=== PATIENT | female | born 1965 | race Caucasian/White ===

== ENCOUNTER 2016-12-21 23:43 | Inpatient (IN) | payer OTHER ==
[~2016-12-21] VITALS: Ht 162.6 cm; Wt 65.6 kg
[~2016-12-21 23:43] MED LIST: CHOL1CAP24 PO; IRON325T2 PO; LEVE500 PO
[2016-12-21 23:50] VITALS: PULSE 88; RESP 16; TEMP 98.9; O2SAT 99
[2016-12-22] MEDS ORDERED: TOPI1TAB36 PO (00:04)
[2016-12-22] MEDS: SODIUM CHLOR 0.9% 1000 ML INJ 1,000 ML IV SCH ×2 (00:15→08:15)
--- NOTE | 2016-12-22 00:33 | RADRPT ---
EXAM DATE/TIME: 12/22/2016 00:19 [place] COMPARISON: CHEST SINGLE AP, April 29, 2012, 18:46. INDICATIONS : pt having chest pain. MEDICAL HISTORY : seizures SURGICAL HISTORY : Pacemaker. Heart cath ENCOUNTER: Initial ACUITY: 1 day PAIN SCORE: 5/10 LOCATION: Bilateral chest FINDINGS: The lungs are clear without infiltrate, nodule, or mass. There is no appreciable pleural effusion fo r technique. Heart and mediastinum are unremarkable. Left subclavian transvenous pacer wires are pre sent with tips in the right atrium and right ventricle. CONCLUSION: No acute cardiopulmonary disease. Gabriella Mack MD on December 22, 2016 at 0:31 Board Certified Radiologist. This report was verified electronically.
[2016-12-22 00:37] LABS: AUTOMATED NEUTROPHIL # 5.5 TH/MM3 (1.8-7.7); BASOPHIL # 0.1 TH/MM3 (0-0.2); BASOPHIL % 1.3 % (0.0-2.0); EOSINOPHIL # 0.2 TH/MM3 (0-0.4); EOSINOPHIL % 1.9 % (0.0-4.0); HEMATOCRIT 41.4 % (35.0-46.0); HEMO FLAGS DIFF FINAL; LYMPH % 27.6 % (9.0-44.0); LYMPHOCYTE # 2.4 TH/MM3 (1.0-4.8); MEAN CELL VOLUME 94.3 FL (80.0-100.0); MEAN CORPUSCULAR HEMOGLOBIN 32.1 PG (27.0-34.0); MONO % 6.8 % (0.0-8.0); NEUT % 62.4 % (16.0-70.0); PLATELET COUNT 225 TH/MM3 (150-450); RED BLOOD COUNT 4.39 MIL/MM3 (4.00-5.30); RED CELL DISTRIBUTION WIDTH 12.6 % (11.6-17.2); WHITE BLOOD COUNT 8.8 TH/MM3 (4.0-11.0)
--- NOTE | 2016-12-22 00:39 | PD ---
HPI Chief Complaint: OD/ Ingestion Time Seen by Provider: 00:02 Travel History International Travel<30 days: No Contact w/Intl Traveler<30days: No Traveled to known affect area: No History of Present Illness HPI 51-year-old female was Ramon acted and brought in by EMS for alcohol intoxication and medication overdose. Patient's best friend Ricardo Batista, phone # [phone] called police today reported the patient is depressed and drinking alcohol. Patient is depressed over the of her son recently and the relationship. Patient told her friend that she swallowed 30 pills of Topamax 100 mg each in an attempt to commit suicide. Unknown time that patient swallowed the medication. Patient was Ramon acted and brought to ED for evaluation. Patient is intoxicated with slurred speech and unable to provide any information now. PFSH Past Medical History Anxiety: Yes (PANIC ATTACKS) Depression: Yes Cancer: No Cardiovascular Problems: Yes (PACEMAKER) Diabetes: No Diminished Hearing: No Endocrine: No Genitourinary: No Hepatitis: No Hiatal Hernia: No Immune Disorder: No Musculoskeletal: No Neurologic: Yes (HX SEIZURES) Psychiatric: No Reproductive: Yes (FIBROIDS) Respiratory: No Immunizations Current: Yes Seizures: Yes Thyroid Disease: No Tetanus Vaccination: < 5 Years Influenza Vaccination: Yes ?: Unknown : 5 Para: 5 Miscarriage: 0 : 0 Tubal Ligation: Yes Past Surgical History Body Medical Devices: BREAST IMPLANTS ; PACEMAKER Cardiac Surgery: Yes (HEART CATH- INSERTION PACEMAKER) Section: Yes (X1) Gynecologic Surgery: Yes () Pacemaker: No Thoracic Surgery: Yes (BREAST IMPLANTS) Tonsillectomy: Yes Other Surgery: Yes (BREAST IMPLANTS) Social History Alcohol Use: Yes Tobacco Use: No Substance Use: No Allergies-Medications (Allergen,Severity, Reaction): Coded Allergies: Latex (Verified Allergy, Severe, Hives, 12/22/16) Klonopin (Verified Allergy, Mild, 12/22/16) Reported Meds & Prescriptions Reported Meds & Active Scripts Active Reported Topiramate 50 Mg Tab 150 Mg PO BID Review of Systems General / Constitutional: No: Fever Eyes: No: Visual changes HENT: No: Headaches Cardiovascular: No: Chest Pain or Discomfort Respiratory: No: Shortness of Breath Gastrointestinal: No: Abdominal Pain Genitourinary: No: Dysuria Musculoskeletal: No: Pain Skin: No Rash Neurologic: No: Weakness Psychiatric: No: Depression Endocrine: No: Polydipsia Hematologic/Lymphatic: No: Easy Bruising Physical Exam Narrative GENERAL: Well-nourished, well-developed patient. SKIN: Focused skin assessment warm/dry. HEAD: Normocephalic. EYES: No scleral icterus. No injection or drainage. Pupils 3 mm equal reactive. NECK: Supple, trachea midline. No JVD or lymphadenopathy. CARDIOVASCULAR: Regular rate and rhythm without murmurs, gallops, or rubs. RESPIRATORY: Breath sounds equal bilaterally. No accessory muscle use. GASTROINTESTINAL: Abdomen soft, non-tender, nondistended. MUSCULOSKELETAL: No cyanosis, or edema. BACK: Nontender without obvious deformity. No CVA tenderness. Neurologic exam: Patient is lethargic, intoxicated, slurring speech. Patient moves all extremity well. No obvious focal neurological deficit. Data Data Last Documented VS Vital Signs Date Time Temp Pulse Resp B/P Pulse Ox O2 Delivery O2 Flow Rate FiO2 12/21/16 23:50 98.9 88 16 99 Orders Electrocardiogram (12/22/16 00:07) Complete Blood Count With Diff (12/22/16 00:07) Comprehensive Metabolic Panel (12/22/16 00:07) Prothrombin Time / Inr (Pt) (12/22/16 00:07) Act Partial Throm Time (Ptt) (12/22/16 00:07) Urinalysis - C+S If Indicated (12/22/16 00:07) Thyroid Stimulating Hormone (12/22/16 00:07) Chest, Single Ap (12/22/16 00:07) Iv Access Insert/Monitor (12/22/16 00:07) Ecg Monitoring (12/22/16 00:07) Oximetry (12/22/16 00:07) Drug Screen, Random Urine (12/22/16 00:07) Alcohol (Ethanol) (12/22/16 00:07) Salicylates (Aspirin) (12/22/16 00:07) Tylenol (Acetaminophen) (12/22/16 00:07) Sodium Chlor 0.9% 1000 Ml Inj (Ns 1000 M (12/22/16 00:15) Potassium Chlor 20 Meq Premix (Kcl 20 Me (12/22/16 03:00) Potassium Chloride Eff (K-Lyte Cl Eff) (12/22/16 03:00) Labs Laboratory Tests Test 12/22/16 12/22/16 00:20 01:30 White Blood Count 8.8 TH/MM3 Red Blood Count 4.39 MIL/MM3 Hemoglobin 14.1 GM/DL Hematocrit 41.4 % Mean Corpuscular Volume 94.3 FL Mean Corpuscular Hemoglobin 32.1 PG Mean Corpuscular Hemoglobin 34.0 % Concent Red Cell Distribution Width 12.6 % Platelet Count 225 TH/MM3 Mean Platelet Volume 9.7 FL Neutrophils (%) (Auto) 62.4 % Lymphocytes (%) (Auto) 27.6 % Monocytes (%) (Auto) 6.8 % Eosinophils (%) (Auto) 1.9 % Basophils (%) (Auto) 1.3 % Neutrophils # (Auto) 5.5 TH/MM3 Lymphocytes # (Auto) 2.4 TH/MM3 Monocytes # (Auto) 0.6 TH/MM3 Eosinophils # (Auto) 0.2 TH/MM3 Basophils # (Auto) 0.1 TH/MM3 CBC Comment DIFF FINAL Differential Comment Prothrombin Time 11.1 SEC Prothromb Time International 1.0 RATIO Ratio Activated Partial 28.9 SEC Thromboplast Time Sodium Level 148 MEQ/L Potassium Level 3.2 MEQ/L Chloride Level 119 MEQ/L Carbon Dioxide Level 19.1 MEQ/L Anion Gap 10 MEQ/L Blood Urea Nitrogen 7 MG/DL Creatinine 0.89 MG/DL Estimat Glomerular Filtration 67 ML/MIN Rate Random Glucose 80 MG/DL Calcium Level 8.2 MG/DL Total Bilirubin 0.1 MG/DL Aspartate Amino Transf 23 U/L (AST/SGOT) Alanine Aminotransferase 30 U/L (ALT/SGPT) Alkaline Phosphatase 70 U/L Total Protein 7.2 GM/DL Albumin 3.7 GM/DL Thyroid Stimulating Hormone 1.870 uIU/ML 3rd Gen Salicylates Level 2.7 MG/DL Acetaminophen Level LESS THAN 2.0 MCG/ML Ethyl Alcohol Level 306 MG/DL Urine Color LIGHT-YELLOW Urine Turbidity CLEAR Urine pH 7.5 Urine Specific [place] 1.002 Urine Protein NEG mg/dL Urine Glucose (UA) NEG mg/dL Urine Ketones NEG mg/dL Urine Occult Blood NEG Urine Nitrite NEG Urine Bilirubin NEG Urine Urobilinogen LESS THAN 2.0 MG/DL Urine Leukocyte Esterase TRACE Urine WBC 1 /hpf Urine Squamous Epithelial 1 /hpf Cells Microscopic Urinalysis Comment CATH-CULT NOT IND Urine Opiates Screen NEG Urine Barbiturates Screen NEG Urine Amphetamines Screen NEG Urine Benzodiazepines Screen NEG Urine Cocaine Screen NEG Urine Cannabinoids Screen NEG MDM Medical Decision Making Medical Screen Exam Complete: Yes Emergency Medical Condition: Yes Interpretation(s) Last Impressions Chest X-Ray 12/22/16 0007 Signed Impressions: Service Date/Time: Thursday, December 22, 2016 00:19 - CONCLUSION: No acute cardiopulmonary disease. Gabriella Mack MD 2:47 AM. CBC within normal limit. Potassium 3.2. Bicarbonate 19.1. Salicylate 2.7. Acetaminophen less than 2.0. Urine drug screen negative. Alcohol 306. UA is negative. Differential Diagnosis Differential diagnosis including medication overdose, intoxication, depression, suicidal. Narrative Course 51-year-old female, intoxicated, overdose on Topamax. Normal saline solution 1 25 cc an hour. 12:40 AM. Spoke with poison control. KCl 25 mEq by mouth given. Diagnosis Primary Impression: Medication overdose Qualified Code: T50.902A - Medication overdose, intentional self-harm, initial encounter Additional Impressions: Hypokalemia Alcohol intoxication Qualified Code: F10.920 - Alcohol intoxication, uncomplicated Ashwin Pope MD Dec 22, 2016 00:39
[2016-12-22 01:11] LABS: ACETAMINOPHEN LESS THAN 2.0 MCG/ML (10.0-30.0); ALKALINE PHOSPHATASE 70 U/L (45-117); ALT (GPT) 30 U/L (10-53); ANION GAP 10 MEQ/L (5-15); AST (GOT) 23 U/L (15-37); BICARBONATE 19.1 MEQ/L (21.0-32.0); BLOOD UREA NITROGEN 7 MG/DL (7-18); CHLORIDE 119 MEQ/L (98-107); GLOMERULAR FILTRATION RATE 67 ML/MIN (>89); POTASSIUM 3.2 MEQ/L (3.5-5.1); SODIUM (NA) 148 MEQ/L (136-145); TOTAL BILIRUBIN ADULT 0.1 MG/DL (0.2-1.0)
[2016-12-22 01:19] LABS: APTT (PATIENT) 28.9 SEC (24.3-30.1); PROTHROMBIN TIME - PATIENT 11.1 SEC (9.8-11.6)
[2016-12-22 01:39] LABS: BLOOD, URINE NEG (NEG); COMMENT (UR) CATH-CULT NOT IND; CULTURE IF INDICATED CATH CULTURE NOT IND; GLUCOSE,URINE NEG (NEG); KETONE, URINE NEG (NEG); NITRITE,URINE NEG (NEG); PH, URINE 7.5 (5.0-8.5); SQUAMOUS EPITHELIAL CELL URINE 1 /hpf (0-5); URINE COLOR LIGHT-YELLOW (YELLW/STRAW)
[2016-12-22 01:50] LABS: AMPHETAMINE, URINE NEG (NEG); BARBITURATES, URINE NEG (NEG); COCAINE, URINE NEG (NEG)
[2016-12-22] MEDS ORDERED: POTASSIUM CHLOR 20 MEQ PREMIX 100 ML IV ONE (03:00)
[2016-12-22] MEDS ORDERED: POTASSIUM CHLORIDE 25 MEQ EFFERVESCENT TAB PO ONE (03:00)
[2016-12-22 03:41] VITALS: BP 125/60; PULSE 86; RESP 18; O2SAT 100
[2016-12-22 07:19] VITALS: BP 115/62; PULSE 78; RESP 14; O2SAT 97
[2016-12-22] MEDS ORDERED: BENZTROPINE MESYLATE 1 MG TAB PO PRN (11:15)
[2016-12-22] MEDS ORDERED: FLUMAZENIL 0.5 MG/5 ML VIAL IV PUSH PRN (11:15)
[2016-12-22] MEDS ORDERED: LORazepam 1 MG TAB PO PRN (11:15)
[2016-12-22] MEDS ORDERED: LORazepam 2 MG/ML VIAL IV PUSH PRN ×4 (11:15)
[2016-12-22] MEDS ORDERED: LORazepam 2 MG TAB PO PRN (11:15)
[2016-12-22] MEDS ORDERED: BENZTROPINE MESYLATE 2 MG/2 ML VIAL IM PRN (11:15)
[2016-12-22] MEDS ORDERED: ACETAMINOPHEN 325 MG TAB PO PRN (12:00)
[2016-12-22] MEDS ORDERED: hydrOXYzine HCL 50 MG TAB PO PRN (12:00)
[2016-12-22] MEDS ORDERED: diphenhydrAMINE HCL 50 MG CAP PO PRN (12:00)
[2016-12-22] MEDS ORDERED: MAGNESIUM HYDROXIDE SUSP 30 ML CUP PO PRN (12:00)
[2016-12-22 12:30] VITALS: BP 139/91; PULSE 88; RESP 16; TEMP 98.8; O2SAT 99
--- NOTE | 2016-12-22 13:00 | PD.CONS ---
HPI Service [facility] Hospitalists Consult Requested By Primary Care Physician No Primary Care Physician Diagnoses: History of Present Illness Pt has hx of sz d/o and SSS s/p PM. Recently her son and she has been depressed and drinking etoh. She felt suicidal and took a "bottle" of topamax. At present she is sitting in dayroom psych dept and denies SI. She has headache but no n/v/cp/abd pain. She seems to regret her actions. Review of Systems Other o/d on topamax depression. Past Family Social History Past Medical History SSS. PM [facility] 2011. nml coronaries Sz d/o breast augmentation anxiety Reported Medications Topiramate 50 Mg Tab 150 Mg PO BID Allergies: Coded Allergies: Latex (Verified Allergy, Severe, Hives, 12/22/16) Klonopin (Verified Allergy, Mild, 12/22/16) Family History NC Social History occ tob and etoh. Physical Exam Vital Signs heart reg lung cta abd s/nt ext no edema Vital Signs Date Time Temp Pulse Resp B/P Pulse Ox O2 Delivery O2 Flow Rate FiO2 12/22/16 07:19 78 14 115/62 97 Room Air 12/22/16 03:41 86 18 125/60 100 Room Air 12/21/16 23:50 98.9 88 16 99 Laboratory Laboratory Tests Test 12/22/16 12/22/16 00:20 01:30 White Blood Count 8.8 Red Blood Count 4.39 Hemoglobin 14.1 Hematocrit 41.4 Mean Corpuscular Volume 94.3 Mean Corpuscular Hemoglobin 32.1 Mean Corpuscular Hemoglobin 34.0 Concent Red Cell Distribution Width 12.6 Platelet Count 225 Mean Platelet Volume 9.7 Neutrophils (%) (Auto) 62.4 Lymphocytes (%) (Auto) 27.6 Monocytes (%) (Auto) 6.8 Eosinophils (%) (Auto) 1.9 Basophils (%) (Auto) 1.3 Neutrophils # (Auto) 5.5 Lymphocytes # (Auto) 2.4 Monocytes # (Auto) 0.6 Eosinophils # (Auto) 0.2 Basophils # (Auto) 0.1 CBC Comment DIFF FINAL Differential Comment Prothrombin Time 11.1 Prothromb Time International 1.0 Ratio Activated Partial 28.9 Thromboplast Time Sodium Level 148 Potassium Level 3.2 Chloride Level 119 Carbon Dioxide Level 19.1 Anion Gap 10 Blood Urea Nitrogen 7 Creatinine 0.89 Estimat Glomerular Filtration 67 Rate Random Glucose 80 Calcium Level 8.2 Total Bilirubin 0.1 Aspartate Amino Transf 23 (AST/SGOT) Alanine Aminotransferase 30 (ALT/SGPT) Alkaline Phosphatase 70 Total Protein 7.2 Albumin 3.7 Thyroid Stimulating Hormone 1.870 3rd Gen Salicylates Level 2.7 Acetaminophen Level LESS THAN 2.0 Ethyl Alcohol Level 306 Urine Color LIGHT-YELLOW Urine Turbidity CLEAR Urine pH 7.5 Urine Specific [place] 1.002 Urine Protein NEG Urine Glucose (UA) NEG Urine Ketones NEG Urine Occult Blood NEG Urine Nitrite NEG Urine Bilirubin NEG Urine Urobilinogen LESS THAN 2.0 Urine Leukocyte Esterase TRACE Urine WBC 1 Urine Squamous Epithelial 1 Cells Microscopic Urinalysis Comment CATH-CULT NOT IND Urine Opiates Screen NEG Urine Barbiturates Screen NEG Urine Amphetamines Screen NEG Urine Benzodiazepines Screen NEG Urine Cocaine Screen NEG Urine Cannabinoids Screen NEG Result Diagram: 12/22/161912/22/1619 Assessment and Plan Problem List: (1) Medication overdose Status: Acute Plan: Pt is 51 yo with SSS/PM, Sz d/o Was depressed about of son Had suicidal thoughts and overdosed on "bottle of topamax" she says may have been at least 20pills. hypokalemia Intoxicated on arrival...currently more sober and with h/a replace kcl given ivf in ED recheck bmp in AM resume her topamax Saturday will f/u (2) Alcohol intoxication Status: Acute Plan: see above (3) Hypokalemia Status: Acute Plan: see above (4) Pacemaker Status: Chronic Plan: see above (5) Seizure disorder Status: Chronic Plan: see above Problem Qualifiers (1) Medication overdose: Qualified Code: T50.902A - Medication overdose, intentional self-harm, initial encounter (2) Alcohol intoxication: Qualified Code: F10.920 - Alcohol intoxication, uncomplicated Chris Clay MD Dec 22, 2016 13:00
--- NOTE | 2016-12-22 13:56 | EKG ---
Date Performed: 12/22/2016 Time Performed: 00:03:35 PTAGE: 51 years EKG: Sinus rhythm Compared to previous tracing, no significant change NORMAL ECG PREVIOUS TRACING : 04/09/2013 07.51 DOCTOR: Chris Bryant Interpretating Date/Time 12/22/2016 13:56:08
[2016-12-22] MEDS ORDERED: ALUMINUM/MAGNESIUM/SIMETH 30 ML CUP PO PRN (14:00)
--- NOTE | 2016-12-22 14:25 | MH ---
cc: CARMELO BRADSHAW MD DATE OF ADMISSION 12/22/2016 ADMISSION DIAGNOSES 1. Adjustment disorder with disturbance of emotions and conduct, F43.25 2. Alcohol abuse, F10.10 Legal status: The patient is presently capacitated to consent for admission and also for medications. Voluntary status. HISTORY OF PRESENT ILLNESS Ms. Macdonald is a 51-year-old female with history of Tegretol overdoses in the past who presents under a Navarro Act following a Topamax overdose. Of note, the patient's alcohol level was significantly elevated at 306 on presentation here. On my reviewing the electronic medical record, I see the patient was seen most recently in consultation by Dr. Mooney in 2009 following Tegretol overdose with alcohol. The patient seen and examined. Chart reviewed. Case discussed with nursing staff. On my examination today, the patient presents as somewhat dysphoric. She says that she was feeling acutely depressed yesterday because she had broken up with her boyfriend. She says that in her intoxicated state she took an entire bottle of Topamax, which she takes for seizures. She is happy to have survived her overdose and denies any suicidal ideation saying that she has a grandson on the way. She denies feeling particularly depressed prior to this conflict, although she does note that we are coming up on the anniversary of her son passing away. No hopeless, worthless feelings. No sleep or appetite disturbance. No hypomanic or manic symptoms. Denies audiovisual hallucinations and I can elicit no delusional beliefs. The remainder of psychiatric ROS is negative. PAST PSYCHIATRIC HISTORY The patient reports no history of psychiatric diagnosis. She has not seen psychiatry outside of the consultations for the Tegretol overdoses. She denies a history of psychiatric admissions. She does report two prior Tegretol overdoses as suicide attempts. FAMILY HISTORY The patient denies a family history of serious mental illness or suicide. Chemical dependency history: The patient reports that she previously drank about a 12-pack of beer daily but has been cutting back lately. She has never obtained any chemical dependency treatment. She denies a history of DTs or seizures. SOCIAL HISTORY The patient works at a car dealership. She has four daughters and a son who is now . One of her daughters is with a grandson. She did have a boyfriend but they broke up yesterday. She denies any access to guns or firearms. PAST MEDICAL HISTORY Includes a history of seizure disorder, on Topamax. REVIEW OF SYSTEMS No reported headache, vision or hearing changes, chest pain, shortness of breath, bowel or bladder issues. No other physical complaints. ALLERGIES INCLUDES TO KLONOPIN AND LATEX. PHYSICAL EXAMINATION VITAL SIGNS: Temperature is 98.9, pulse 78, respirations 14, blood pressure 115/62, pulse oximetry 97% on room air. Physical examination completed by the ED provider. On my examination today, the patient appears to be in no acute physical distress. No abnormal motor movements noted. No signs of withdrawal noted. LABORATORY Reviewed: CBC is unremarkable. CMP reveals hypokalemia, repleted now mild hypernatremia, decreased GFR at 67. Alcohol level 306. Toxicology negative. Urinalysis bland. Coags within normal limits. MENTAL STATUS EXAMINATION The patient is in hospital gown. She is somewhat disheveled but maintaining basic hygiene. She is awake, alert and oriented to person and hospital at least. No evidence of delirium. No motor abnormalities noted. Speech is within normal limits for rate, tone and volume. Language and fund of knowledge seem average. Mood is somewhat dysphoric and affect is restricted. Thought process linear. No loosening of associations. No evident delusional beliefs. Denies audiovisual hallucinations. Denies suicidal or homicidal ideation but it is unclear that she is reliable to contract for safety in her present state. Insight and judgment are fair to poor at best. ASSESSMENT/PLAN This is a 51-year-old female with psychiatric history as detailed above who presents following a Topamax ingestion while intoxicated, under a Nav[place] Act. On my evaluation today, the patient reports that she took this overdose impulsively in the setting of a fight with her boyfriend in which they broke up. However, she denies suicidal ideation now. The patient does have ongoing risk factors for self-harm, however, not least of which is the upcoming birthday of her son now . I believe it is most prudent at this juncture therefore to admit the patient for a psychiatric observation and stabilization if necessary. Admit inpatient. Voluntary status. Check a beta hCG. Check a BMP and thyroid function tests in the morning. Consulted the hospitalist for medical management. Initiate Lexapro 10 milligrams daily for management of dysphoria. CIWA scale with Ativan as needed for withdrawal. (Allergy to Klonopin, but this is listed as mild). Thiamine and folate. Seizure and fall precautions. Resume Topamax as ordered for seizure prophylaxis. Seizure and fall precautions. Atarax as needed for anxiety, Cogentin as needed for EPS, Benadryl as needed for sleep. Vitals every shift. Counselor to see. Disposition planning. Estimated length of stay: 5-7 days. Carmelo Bradshaw DC/DARIO /11:16 AM /2:04 PM DOLORES
[2016-12-22 18:27] VITALS: BP 146/68; PULSE 78; RESP 17; TEMP 97.9; O2SAT 100
[2016-12-22] MEDS ORDERED: TOPIRAMATE 25 MG TAB PO SCH (21:00)
[2016-12-23 06:23] VITALS: BP 127/69; PULSE 64; RESP 17; TEMP 97.2; O2SAT 96
[2016-12-23] MEDS: REMOVE OLD PATCH T-DERMAL SCH (08:29)
[2016-12-23] MEDS: THIAMINE HCL 100 MG TAB PO SCH (08:29)
[2016-12-23] MEDS: ESCITALOPRAM OXALATE 10 MG TAB PO SCH (08:29)
[2016-12-23] MEDS: NICOTINE 21 MG/24 HR PATCH T-DERMAL SCH (08:29)
[2016-12-23] MEDS: FOLIC ACID 1 MG TAB PO SCH (08:29)
[2016-12-23 10:52] LABS: ANION GAP 11 MEQ/L (5-15); BLOOD UREA NITROGEN 11 MG/DL (7-18); CHLORIDE 108 MEQ/L (98-107); FREE T4 0.89 NG/DL (0.76-1.46); GLOMERULAR FILTRATION RATE 48 ML/MIN (>89); HDL CHOLESTEROL 69.8 MG/DL (40.0-60.0); LDL CHOLESTEROL 75 MG/DL (0-99); MAGNESIUM 2.1 MG/DL (1.5-2.5); POTASSIUM 3.5 MEQ/L (3.5-5.1); SODIUM (NA) 139 MEQ/L (136-145)
[2016-12-23] MEDS ORDERED: POTASSIUM CHLORIDE 20 MEQ CONTROLLED RELEASE TAB PO ONE (12:00)
[2016-12-23 16:32] VITALS: BP 155/70
--- NOTE | 2016-12-23 17:41 | HHI.PYPN ---
Subjective Remarks Pt seen and discussed with staff. Pt reports that mood remains depressed but she is feeling a bit better today and she denies suicidal ideations today. Visited with family without incident. No medication side effects. Objective Alert: Yes Rodney: Person, Place, Date, Situation Mood: Depressed Affect: Flat Memory Intact: Immediate, Recent, Remote Hallucinations: Other (none) Delusions: No Delusion Type: Other (none) Suicidal: Ideation (denies) Homicidal: Ideation (denies) Insight/Judgment limited Labs Test 12/23/16 09:24 Sodium Level 139 MEQ/L Potassium Level 3.5 MEQ/L Chloride Level 108 MEQ/L Carbon Dioxide Level 20.0 MEQ/L Anion Gap 11 MEQ/L Blood Urea Nitrogen 11 MG/DL Creatinine 1.19 MG/DL Estimat Glomerular Filtration 48 ML/MIN Rate Random Glucose 98 MG/DL Calcium Level 9.3 MG/DL Phosphorus Level 2.6 MG/DL Magnesium Level 2.1 MG/DL Triglycerides Level 114 MG/DL Cholesterol Level 168 MG/DL LDL Cholesterol 75 MG/DL HDL Cholesterol 69.8 MG/DL Cholesterol/HDL Ratio 2.40 RATIO Free Thyroxine 0.89 NG/DL Thyroid Stimulating Hormone 1.970 uIU/ML 3rd Gen Vitals/IOs Vital Signs Date Time Temp Pulse Resp B/P Pulse Ox O2 Delivery O2 Flow Rate FiO2 12/23/16 16:32 155/70 12/23/16 06:23 97.2 64 17 96 12/22/16 07:19 Room Air Assessment & Plan Problem List: (1) Major depressive disorder, recurrent episode, severe ICD Code: F33.2 Assessment & Plan Continue current tx plan. Estimated LOS: days Justification for Cont. Inpt. safety Lulu Santana MD Dec 23, 2016 17:41
[2016-12-23] MEDS ORDERED: IBUPROFEN 600 MG TAB PO PRN (17:45)
[2016-12-23 18:16] VITALS: BP 157/93; PULSE 70; RESP 17; TEMP 97.4; O2SAT 98
[2016-12-24 06:56] VITALS: BP 123/71; PULSE 73; RESP 16; TEMP 97.3; O2SAT 97
[2016-12-24] MEDS: FOLIC ACID 1 MG TAB PO SCH (08:37)
[2016-12-24] MEDS: THIAMINE HCL 100 MG TAB PO SCH (08:37)
[2016-12-24] MEDS: ESCITALOPRAM OXALATE 10 MG TAB PO SCH (08:37)
[2016-12-24] MEDS: REMOVE OLD PATCH T-DERMAL SCH (08:40)
[2016-12-24] MEDS: NICOTINE 21 MG/24 HR PATCH T-DERMAL SCH (08:40)
[2016-12-24] MEDS ORDERED: TOPIRAMATE 25 MG TAB PO SCH (09:00)
[2016-12-24 11:40] LABS: HEMOGLOBIN A1b 1.2 %; HEMOGLOBIN Ao 86.9 %; HEMOGLOBIN LA1C 1.8 %; HEMOGLOBIN P3 3.3 %
[2016-12-24] MEDS ORDERED: ESCI10TA PO (13:02)
[2016-12-24] MEDS ORDERED: GNP100TA3 PO (13:02)
[2016-12-24] MEDS ORDERED: Folic Acid PO (13:02)
[2016-12-24] MEDS ORDERED: TOPI1TAB36 PO (13:02)
--- NOTE | 2016-12-24 13:15 | HHI.DS ---
Psychiatry Discharge Summary Inpatient Psychiatric care?: Yes Advance Directive: No Reason Not Provided: Due to Patient Condition Mental Health AdvanceDirective: No Health Care Proxy: No Admission Admission Date Dec 22, 2016 at 11:09 Admission Diagnosis: (1) Major depressive disorder, recurrent episode, severe ICD Code: F33.2 (2) Alcohol intoxication ICD Code: F10.929 Brief History Please see H&P dictated by Dr. Carmelo devries 12/22 Tobacco Use In Past 30 Days: Cigarettes But Not Daily Alcohol Use: 4 or More Times Per Week Hospital Course Patient seen in [place] with nurse Manoj, patient calm cooperative since she has been depressed recently grieving over the bridge seen anniversary of her 27-year -old that about a year or 2 ago. At this time she denies suicidality homicidality voices or visions. She does acknowledge misuse of alcohol. There are blood alcohol levels in our EMR going back greater than 10 years marked elevated levels. Patient making some minimization of her alcohol use. However she continues to denies suicidality homicidality. States she realizes she needs to see a psychiatrist. Patient does have [facility]. At this time I feel patient is not maximum benefit of this hospitalization. She does have family home was able to help care for her. She states she is willing to be cooperative with medication. I also recommend absolute abstinence. Follow up with AA. And follow-up with counseling through [facility] patient we discharges Rx 1 month Results Blood Pressure 123 / 71 Vital Signs Date Time Temp Pulse Resp B/P Pulse Ox O2 Delivery O2 Flow Rate FiO2 12/24/16 06:56 97.3 73 16 123/71 97 12/22/16 07:19 Room Air Laboratory Tests Test 12/22/16 12/22/16 12/23/16 00:20 01:30 09:24 Sodium Level 148 MEQ/L (136-145) Potassium Level 3.2 MEQ/L (3.5-5.1) Chloride Level 119 MEQ/L 108 MEQ/L (98-107) (98-107) Carbon Dioxide Level 19.1 MEQ/L 20.0 MEQ/L (21.0-32.0) (21.0-32.0) Estimat Glomerular Filtration 67 ML/MIN (>89) 48 ML/MIN (>89) Rate Calcium Level 8.2 MG/DL (8.5-10.1) Total Bilirubin 0.1 MG/DL (0.2-1.0) Salicylates Level 2.7 MG/DL (2.8-20.0) Acetaminophen Level LESS THAN 2.0 MCG/ML (10.0-30.0) Ethyl Alcohol Level 306 MG/DL (0-5) Urine Leukocyte Esterase TRACE (NEG) Creatinine 1.19 MG/DL (0.50-1.00) HDL Cholesterol 69.8 MG/DL (40.0-60.0) Laboratory Results Test 12/23/16 09:24 Hemoglobin A1c 5.1 % (4.3-6.0) Triglycerides Level 114 MG/DL (42-150) Cholesterol Level 168 MG/DL (120-200) LDL Cholesterol 75 MG/DL (0-99) HDL Cholesterol 69.8 MG/DL (40.0-60.0) Summary of Procedures None done Imaging Last Impressions Chest X-Ray 12/22/16 0007 Signed Impressions: Service Date/Time: Thursday, December 22, 2016 00:19 - CONCLUSION: No acute cardiopulmonary disease. Gabriella Mack MD Pending results at discharge: No Medications # of Antipsychotic meds at D/C: 0 Approp Antipsych med options 1 - Minimum of three failed multiple trials of monotherapy. 2 - Documented plan to taper to monotherapy due to previous use of multiple meds OR cross-taper in progress at D/C. 3 - Documentation of augmentation of Clozapine. 4 - Justification other than those listed in allowable values 1-3, document here : Discharge Discharge Date: Dec 24, 2016 Discharge Diagnosis: (1) Major depressive disorder, recurrent episode, severe Diagnosis: Principal ICD Code: F33.2 (2) Alcohol intoxication Diagnosis: Secondary ICD Code: F10.929 Mental Status Exam at Disch Alert oriented white female calm cooperative, she is normal active, she is euthymic to mildly dysphoric, with good range intensity of her mood. Speech rate and rhythm within normal limits. There are no formal thought disorders. There are no auditory or visual hallucinations no delusions. Insight and judgment is poor to fair cognition grossly intact Pt Condition on Discharge: Stable Discharge Disposition: Discharge Home Discharge Instructions Diet Instructions: As Tolerated, No Restrictions Activities you can perform: Regular-No Restrictions Scheduled Appointment: [facility] (also referred to AA) Discharge Time > 30 minutes Discharge/Advance Care Plan Health Problems: (1) Major depressive disorder, recurrent episode, severe Goals to promote your health * To prevent worsening of your condition and complications * To maintain your health at the optimal level Directions to meet your goals Take your medications as prescribed Follow your dietary instruction Follow activity as directed Keep your appointments as scheduled Take your immunizations and boosters as scheduled If your symptoms worsen call your PCP, if no PCP go to Urgent Care Center or Emergency Room For 11/02 questions related to your inpatient stay or results of tests pending at discharge, please contact Dr. Jonas Bullard at Smoking is Dangerous to Your Health. Avoid second hand smoking Problem Qualifiers (1) Alcohol intoxication: Qualified Code: F10.920 - Alcohol intoxication, uncomplicated Jonas Bullard MD Dec 24, 2016 13:15
== END 2016-12-24 15:00 | disposition home or self-care (01) | DRG 885 ==
LOC: NEPE 23:43 → NEDA 12-22 11:09 → H260 12-22 12:30
PROVIDERS: ADMIT Psychiatry & Neurology Psychiatry; ATTEND Psychiatry & Neurology Psychiatry
DX: F33.2 Major depressive disorder, recurrent severe without psychotic features (principal); G40.909 Epilepsy, unspecified, not intractable, without status epilepticus; E87.6 Hypokalemia; F10.929 Alcohol use, unspecified with intoxication, unspecified; Y90.8 Blood alcohol level of 240 mg/100 ml or more; Z72.0 Tobacco use
CPT/HCPCS: 71010; 80048; 80053; 80061; 80307; 81001; 83036; 83735; 84100; 84439; 84443; 84703; 85025; 85610; 85730; 93005; 96360; 96361; J7030; Q0163